=== PATIENT | male | born 1965 | race Caucasian/White ===

== ENCOUNTER 2020-10-05 18:54 | Inpatient (IN) | payer OTHER, SELFPAY ==
[2020-10-05] VITALS (7 sets, daily range): BP systolic 112–131; BP diastolic 70–88; PULSE 107–135; RESP 16–22; TEMP 35.8–37.7; O2SAT 93–97; BMI 31.3
--- NOTE | ~2020-10-05 | US_ITS ---
EXAMINATION:US venous doppler LE BI INDICATION:Prior Covid infection. Pulmonary embolism. TECHNIQUE: Multiple grayscale, color flow and Doppler images of the right and left lower extremity de ep venous systems were obtained and reviewed. COMPARISON:CTA pulmonary dated 10/05/2020 FINDINGS: The common femoral, superficial femoral and popliteal veins demonstrate normal respiratory variation, augmentation and compressibility. Color flow is also seen within the posterior tibial, pe roneal, greater saphenous and profunda veins. IMPRESSION: 1: No lower extremity deep venous thrombosis. Reviewed, dictated and finalized at location B. 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
--- NOTE | ~2020-10-05 | XR_ITS ---
EXAMINATION: XR chest 1V portable DATE: 10/05/2020 19:39 INDICATION: COVID positive presenting with cough and shortness of breath TECHNIQUE: frontal view of the chest was obtained. COMPARISON: None FINDINGS: Linear opacities favoring discoid atelectasis at the lateral left lower lung zone. More indistinct mi ld patchy airspace opacity medial right lower lung zone which could represent additional atelectasis or pneumonia. No pleural effusion or pneumothorax. The cardiomediastinal silhouette is normal. IMPRESSION: 1. Opacities in the bilateral lower lung zones with appearance favoring atelectasis on the left and m ore equivocal for atelectasis versus pneumonia on the right. Reviewed, dictated and finalized at location A. LE HELPER IMPRESSION: 1. Opacities in the bilateral lower lung zones with appearance favoring atelect asis on the left and more equivocal for atelectasis versus pneumonia on the rig ht.
--- NOTE | ~2020-10-05 | CT_ITS ---
EXAMINATION: CTA chest PE abdomen pel DATE: 10/05/2020 20:46 INDICATION: Chest pain, shortness of breath, cough and computed positive. Right flank pain. TECHNIQUE: Computed tomography (CT) pulmonary angiogram of the chest was performed with 100 mL Omnipa que-350 intravenous contrast. Additional 3D reconstructions utilizing coronal maximum intensity proje ction (MIP) were performed. CT of the abdomen and pelvis was performed with intravenous contrast util izing the same contrast bolus following a short delay. Automated exposure control and iterative recon struction technique were employed. The dose-length product was 1247.69 mGy-cm. COMPARISON: None FINDINGS: Chest: Good but suboptimal contrast opacification of the pulmonary arteries. There is moderate streak artifa ct from dense contrast in the superior vena cava and right atrium. Mild scattered respiratory motion artifact. Overall this decreases sensitivity and specificity in some of the smaller segmental and sub segmental pulmonary arteries. Large filling defect in the right lower lobar pulmonary artery extendin g into the basilar segmental and subsegmental pulmonary arteries of the right lower lobe. There appea r to be a few additional smaller pulmonary emboli in several segmental or subsegmental pulmonary rodolfo matt scattered throughout the remainder of the lungs. Overall there is a moderate clot burden. Dense consolidation with some surrounding groundglass opacity in the posterior basilar segment of the right lower lobe most likely representing a pulmonary infarct. Multiple smaller scattered peripheral predo minant groundglass opacities throughout both lungs in a pattern more typical of computed pneumonia. T here are a few bands of linear discoid atelectasis in the bilateral lower lobes and lingula. No pleur al effusion or pneumothorax. Heart size is normal. No leftward bowing of the ventricular septum to gaming ggest right heart strain. Thoracic aorta is normal in caliber with no dissection. Mild bilateral kaitlin r lymphadenopathy which is likely reactive. Abdomen/pelvis: Liver, gallbladder, spleen, pancreas, bilateral adrenal glands and kidneys are normal. There are few scattered colonic diverticula without adjacent inflammatory change to suggest diverticulitis. Small b owel and appendix are normal. Postoperative change of prior umbilical hernia repair. Bladder is dariel l. No free intraperitoneal gas or fluid. No pathologically enlarged abdominal or pelvic lymphadenopat hy. Severe spondylosis at the lumbosacral junction. Mild to moderate spondylosis in the more cephalad lumbar and lower thoracic spine. Moderate bilateral hip osteoarthritis. IMPRESSION: 1. Bilateral pulmonary emboli with overall moderate clot burden, greatest in the right lower lobe whe re there is a pulmonary infarct in the posterior basilar segment. 2. Scattered bilateral peripheral predominant small patchy groundglass opacities more typical of COVI D pneumonia. Both this and the pulmonary emboli and pulmonary infarct were discussed with Dr. Hernández at 9:00 PM. 3. No acute intra-abdominal/pelvic process. Reviewed, dictated and finalized at location A. PULLER IMPRESSION: 1. Bilateral pulmonary emboli with overall moderate clot burden, greatest in th e right lower lobe where there is a pulmonary infarct in the posterior basilar segment. 2. Scattered bilateral peripheral predominant small patchy groundglass opacitie s more typical of COVID pneumonia. Both this and the pulmonary emboli and pulmo nary infarct were discussed with Dr. Hernández at 9:00 PM. 3. No acute intra-abdominal/pelvic process.
--- NOTE | 2020-10-05 19:05 | ECG_ITS ---
Measurements Intervals [place] Rate: 120 P: 64 DC: 147 QRS: 23 QRSD: 78 T: 40 QT: 318 QTc: 449 Interpretive Statements SINUS TACHYCARDIA NONSPECIFIC T-WAVE ABNORMALITY- INFERIOR LEADS ABNORMAL ECG Electronically Signed On 10-06-2020 6:56:41 [employer] by Loi Wilson D.O.
[2020-10-05 19:36] LABS: Basophils Absolute Auto 0.1 K/mm3 (0.0-0.1); Basophils Percent Auto 0.4 % (0.2-1.2); Eosinophils Absolute Auto 0.1 K/mm3 (0-0.3); Eosinophils Percent Auto 0.3 % (0-4.4); Hematocrit 47.6 % (42.0-52.0); Hemoglobin 16.4 g/dL (14.0-18.0); Immature Granulocyte Absolute 0.25 K/mm3 (0.00-0.031); Immature Granulocyte Percent A 1.6 % (0-0.5); Lymphocytes Absolute Auto 1.56 K/mm3 (0.9-3.2); Lymphocytes Percent Auto 9.8 % (18.3-44.2); Mean Corpuscular HGB Conc 34.5 g/dl (32-36); Mean Corpuscular Hemoglobin 28.7 pg (26-34); Mean Corpuscular Volume 83.4 fl (80-100); Mean Platelet Volume 8.9 fl (7.4-10.4); Monocytes Absolute Auto 1.4 K/mm3 (0.1-0.6); Monocytes Percent Auto 8.9 % (2.6-8.5); Neutrophils Absolute Auto 12.6 K/mm3 (1.3-6.7); Platelet Count Result 619 k/mm3 (150-375); Red Blood Count 5.71 M/mm3 (4.6-6.20); White Blood Count 15.9 K/mm3 (4.5-10.0)
[2020-10-05 19:46] LABS: Prothrombin Time 13.8 Seconds (11.1-14.7)
[2020-10-05 20:02] LABS: Lactic Acid Reflex 1.7 mmol/L (0.7-2.1)
[2020-10-05 20:03] LABS: D Dimer 12.01 ug/mL (<0.48)
[2020-10-05 20:05] LABS: Alanine Aminotransferase 113 U/L (4-50); Albumin Level 4.1 g/dL (3.5-5.1); Alkaline Phosphatase 123 U/L (38-126); Anion Gap 10 mmol/L (8-16); Aspartate Amino Transferase 64 U/L (17-59); Bilirubin,Total 1.2 mg/dL (0.2-1.3); Blood Urea Nitrogen 10 mg/dL (9-20); CRP 8.5 mg/dL (<1.0); Calcium 8.8 mg/dL (8.4-10.2); Carbon Dioxide 23 mmol/L (22-30); Chloride 106 mmol/L (98-107); Estimated CRCL calculation 86 ml/min; Estimated Glomerular Filt Rate > 60; Glucose 111 mg/dL (75-110); Potassium 4.2 mmol/L (3.4-5.0); Sodium 139 mmol/L (137-145)
--- NOTE | 2020-10-05 20:06 | PC.NURSE ---
Addendum entered by Baldomero Schmidt RN 10/05/20 20:24: Pt repeatedly yelling I can't breathe, I can't breathe! restless, and pacing around the room. spo2 96% on room air. Pt grabbing right flank area, lower right ribs, as to where the pain is. States hx of kidney stones but states does not feel like his kidney stone pain. Original Note: Attempts at IV x2 per this RN unsuccessful.
[2020-10-05 20:14] LABS: Troponin I < 0.012 ng/mL (0.000-0.034)
--- NOTE | 2020-10-05 20:18 | ED.GENADULT ---
HPI - General Adult General Chief complaint: Upper Respiratory Infection Stated complaint: cOVID +, SOB Time Seen by Provider: 10/05/20 20:08 Source: patient Mode of arrival: ambulatory Limitations: no limitations History of Present Illness HPI narrative: This patient is 55 year old male who presents for evaluation right mid to upper back . He reports he was diagnosed with COVID 2.5 weeks ago. He has had cough, subjective fever, weakness. He states tonight he was laying in bed and he developed pain to his right upper back. He describes his pain has some stepping on his back constantly. He reports this is causing him to have difficulty breathing. He denies chest pain or abdominal pain. He denies nausea, vomiting or diarrhea. He reports weakness and fatigue. Related Data Allergies Allergy/AdvReac Type Severity Reaction Status Date / Time No Known Allergies Allergy Mild Unverified 01/27/15 13:16 Review of Systems Review of Systems: All systems reviewed & are unremarkable except as noted in HPI and below ENT: Reports sore throat Respiratory: Respiratory: Reports cough and Reports dyspnea Gastrointestinal: Gastrointestinal: Denies abdominal pain, Denies diarrhea, Denies nausea and Denies vomiting PMFSH Past Medical History Medical History (Updated 10/05/20 @ 21:18 by Neida Hernández MD) Patient denies medical problems Surgical History Surgical History (Updated 10/05/20 @ 20:19 by Neida Hernández MD) No pertinent past surgical history Social History Social History (Updated 10/05/20 @ 20:19 by Neida Hernández MD) Smoking status: Never smoker Exam Const: General: no acute distress and alert Orientation/consciousness: patient oriented x3 Eyes: EOM: EOMs intact bilaterally Resp: Effort & Inspection: normal respiratory effort and no retractions Auscultation: clear to auscultation bilaterally Cardio: Rate: tachycardic Rhythm: regular rhythm Heart sounds: no murmurs GI: GI Palp: Yes Soft to palpation, No Tenderness to palpation present (GI) and No Guarding due to palpation present (GI) Auscultation: normal bowel sounds : General: Yes CVA tenderness on the right Neuro: General: patient oriented x3 and moves all extremities Psych: Mental Status: mental status grossly normal Affect: normal affect Course Reevaluation(s) Reevaluation #1: I Discussed with patient that he was found to have pulmonary emboli and he will be admitted. Date: 10/05/20 Time: 21:17 Consultations Consultation #1: I discussed case with DR. Drew who accepts patient to [facility] Date: 10/05/20 Time: 21:17 Vital Signs Vital signs: Vital Signs Temperature 96.5 F L 10/05/20 18:58 Pulse Rate 130 H 10/05/20 18:58 Respiratory Rate 16 10/05/20 18:58 Blood Pressure 116/70 10/05/20 18:58 Pulse Oximetry 97 10/05/20 18:58 Temperature 96.5 F L 10/05/20 18:58 Pulse Rate 122 H 10/05/20 20:29 Respiratory Rate 16 10/05/20 20:29 Blood Pressure 126/72 10/05/20 20:29 Pulse Oximetry 93 10/05/20 20:29 Medical Decision Making Vital Signs Vital Signs: Vital Signs Temperature 96.5 F L 10/05/20 18:58 Pulse Rate 130 H 10/05/20 18:58 Respiratory Rate 16 10/05/20 18:58 Blood Pressure 116/70 10/05/20 18:58 Pulse Oximetry 97 10/05/20 18:58 Temperature 96.5 F L 10/05/20 18:58 Pulse Rate 122 H 10/05/20 20:29 Respiratory Rate 16 10/05/20 20:29 Blood Pressure 126/72 10/05/20 20:29 Pulse Oximetry 93 10/05/20 20:29 Lab Data Lab results reviewed: Yes I reviewed the patient's lab results. Result diagrams: 10/05/20 19:15 10/05/20 19:15 Labs: Lab Results 10/05/20 10/05/20 10/05/20 Range/Units 19:15 19:15 19:15 WBC 15.9 H (4.5-10.0) K/mm3 RBC 5.71 (4.6-6.20) M/mm3 Hgb 16.4 (14.0-18.0) g/dL Hct 47.6 (42.0-52.0) % MCV 83.4 (80-100) fl MCH 28.7 (26-34) pg MCHC 34.5 (32-36) g/dl RDW 13.0 (1
[2020-10-05] MEDS: LACTATED RINGERS 1,000 ML 999 ML IV CONT (20:26)
[2020-10-05] MEDS: HYDROmorphone HCL INJ (*CRX) 1 MG/ML SYR IV PUSH (20:27)
[2020-10-05] MEDS: ONDANSETRON INJ 4 MG/2 ML VIAL IV PUSH (20:27)
--- NOTE | 2020-10-05 20:46 | PC.NURSE ---
called to tell Maxime khanna is in room, no answer [id number]
--- NOTE | 2020-10-05 21:00 | PC.NURSE ---
updated on patient status.
[2020-10-05] MEDS: ENOXAPARIN 100 MG/ML SYRINGE SUB-Q (21:19)
[2020-10-05 22:08] LABS: Add Urine Microscopic? YES; Appearance Urine Clear (Clear); Bacteria Urine Trace /hpf; Bilirubin Urine Negative (Negative); Blood Urine Negative (Negative); Color Urine Yellow (Yellow); Glucose Urine UA Negative (Negative); Ketones Urine Trace mg/dL (Negative); Leukocyte Esterase Ur Negative LEU/UL (Negative); Mucus Urine Few /lpf; Nitrate Urine Negative (Negative); Protein Urine 1+ mg/dL (Negative); WBC Urine 0-3 /hpf
[2020-10-05 22:10] LABS: Specific Grav Ur > 1.060 (1.001-1.035)
--- NOTE | 2020-10-05 22:35 | PC.NURSE ---
updated alejandro on patient status and going to room 314
[2020-10-06] VITALS (13 sets, daily range): BP systolic 117–129; BP diastolic 62–83; PULSE 92–121; RESP 16–20; TEMP 36.6–37.1; O2SAT 92–95
--- NOTE | 2020-10-06 00:39 | ADMGEN ---
This patient, Jhon Smith, was admitted to 3 [facility] Surg Room 314-01. Patient/family oriented to hospital policies and general routines including ID bracelet, bed and alarms, visiting hours, pain management, procedures, bathroom and other care routines, personal items, smoking policy, room service/diet, and visiting hours. Information on how to activate the Rapid Response Team has been discussed. Patient/Family are encouraged to report perceived risks to care and to ask questions if they do not understand what they are told or what they should do.
[2020-10-06] MEDS: MORPHINE SULFATE (*CRX) 4 MG/ML INJ IV PUSH ×4 (01:19→07:09)
[2020-10-06 07:37] LABS: Basophils Absolute Auto 0.1 K/mm3 (0.0-0.1); Basophils Percent Auto 0.5 % (0.2-1.2); Eosinophils Percent Auto 0.2 % (0-4.4); Hematocrit 45.2 % (42.0-52.0); Hemoglobin 14.8 g/dL (14.0-18.0); Immature Granulocyte Absolute 0.23 K/mm3 (0.00-0.031); Immature Granulocyte Percent A 1.5 % (0-0.5); Lymphocytes Absolute Auto 2.01 K/mm3 (0.9-3.2); Lymphocytes Percent Auto 12.9 % (18.3-44.2); Mean Corpuscular HGB Conc 32.7 g/dl (32-36); Mean Corpuscular Hemoglobin 27.8 pg (26-34); Mean Corpuscular Volume 84.8 fl (80-100); Mean Platelet Volume 9.1 fl (7.4-10.4); Monocytes Percent Auto 12.8 % (2.6-8.5); Neutrophils Absolute Auto 11.2 K/mm3 (1.3-6.7); Neutrophils Percent Auto 72.1 % (45.5-73.1); Platelet Count Result 555 k/mm3 (150-375); Red Blood Count 5.33 M/mm3 (4.6-6.20); White Blood Count 15.6 K/mm3 (4.5-10.0)
[2020-10-06 07:51] LABS: Alanine Aminotransferase 97 U/L (4-50); Albumin Level 3.8 g/dL (3.5-5.1); Alkaline Phosphatase 109 U/L (38-126); Anion Gap 8 mmol/L (8-16); Aspartate Amino Transferase 50 U/L (17-59); Bilirubin,Total 1.7 mg/dL (0.2-1.3); Blood Urea Nitrogen 10 mg/dL (9-20); Calcium 8.4 mg/dL (8.4-10.2); Carbon Dioxide 25 mmol/L (22-30); Chloride 102 mmol/L (98-107); Estimated CRCL calculation 80 ml/min; Estimated Glomerular Filt Rate > 60; Glucose 114 mg/dL (75-110); Potassium 4.1 mmol/L (3.4-5.0); Sodium 135 mmol/L (137-145)
[2020-10-06] MEDS: ENOXAPARIN 100 MG/ML SYRINGE SUB-Q ×2 (08:25→20:08)
[2020-10-06] MEDS: MORPHINE SULFATE (*CRX) 4 MG/ML INJ 2 MG IV PUSH ×2 (09:09→14:46)
--- NOTE | 2020-10-06 10:39 | PM.IMHP ---
H&P: HPI History of Present Illness Date/Time: 10/06/20 10:00 Chief Complaint: Shortness of breath, right chest pain Narrative: Date of Admission: 10/05/20 Date of Service: 10/06/20 1000 The supervising physician for this history and physical is Dr Alyssa Santos. Mr. Smith is a pleasant 55yo M with previous history of COVID-19 diagnosed 09/19/20 without other known previous medical conditions who presented to the ED for evaluation of worsening shortness of breath and sudden onset of right-sided chest pain. He describes overall significant fatigue since being diagnosed with COVID a few weeks ago. He describes he presented to [facility] 10/04/20 and was not requiring any oxygen at that time, a chest XR was obtained and he was discharged from the ED encouraged to monitor his symptoms. He describes around 7pm yesterday he experienced a sharp, stabbing pressure pain to his right lateral ribcage radiating to his back, worsened with cough and deep breaths. He is having trouble taking deep breaths due to the pain. He denies any anterior or left-sided chest pain. He has a dry nonproductive cough but denies hemoptysis, denies leg swelling or pain. He has been monitoring his oxygen levels at home with pulse ox and noted he hadn't observed any saturations less than 90% at home. Workup thus far has included an elevated D dimer at 12, CTA chest demonstrated AMY pulmonary emboli with moderate clot burden and right lobe infarct. His is mildly hypoxic requiring up to 2L/min nasal cannula. He has been started on therapeutic dosing of Lovenox by the ED provider and he is admitted to the hospitalist service for management of acute respiratory failure with hypoxia in the setting of pulmonary emboli and recent COVID infection. Review of Systems Review of Systems: Narrative: Right lower lateral chest wall pain worse with deep breaths and coughing. Splinting taking short shallow breaths. Denies nausea, vomiting or abdominal pain. Reports fatigue and decreased oral intake with decreased appetite. Denies leg swelling or pain. Denies headaches, dizziness or syncope. Denies heart palpitations or sensation of heart racing. Twelve systems were reviewed with pertinent positives and negatives as per HPI. Except as documented, all other systems were reviewed and are negative. [facility] Past Medical History Medical History Patient denies medical problems Surgical History Surgical History No pertinent past surgical history Social History Social History (Updated 10/06/20 @ 17:00 by Carole Neil PA-C) Social History: Mr. 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 He had been working from home up until a few weeks ago. He reports rare alcohol use less than once per month. Never smoker. Denies other substance use. Reports his old PCP is Dr Joseph in [place] but he had an appointment for tomorrow to establish care with a new PCP closer to his home, unsure of the name but Dr Bustillo is listed in his chart. Full code status. Smoking status: Never smoker Alcohol intake: current Alcohol use details: Rare - less than 1 drink per month Substance use: never Gender identity (if verbalized by the patient): Male Spiritual care concerns: No Meds Home Medications and Allergies Home Medications Medication Instructions Recorded Confirmed Type No Home Medications 10/06/20 10/06/20 History Allergies Allergy/AdvReac Type Severity Reaction Status Date / Time No Known Allergies Allergy Mild Unverified 01/27/15 13:16 Vital Signs Last Vital Signs Temp 97.8 F 10/06/20 14:00 Pulse 92 10/06/20 14:00 Resp 16 10/06/20 14:00 BP 117/62 10/06/20 14:00 Pulse Ox 92 10/06/20 14:00 Exam Narrative: Exam Narrative: General: Moderately ill-appeari
[2020-10-06] MEDS: HYDROcodone/acetaminophen (*CRX) 7.5-325 MG TABLET 1 TAB PO ×2 (11:39→17:48)
[2020-10-06] MEDS: SALINE 0.65% NAS SOLN 44 ML BTL 1 SPRAY NASAL (14:46)
[2020-10-07] VITALS (8 sets, daily range): BP systolic 117–129; BP diastolic 77–91; PULSE 88–103; RESP 18–22; TEMP 36.4–37.1; O2SAT 94–95
[2020-10-07] MEDS: HYDROcodone/acetaminophen (*CRX) 7.5-325 MG TABLET 1 TAB PO ×4 (00:57→22:06)
[2020-10-07 06:25] LABS: Basophils Absolute Auto 0.1 K/mm3 (0.0-0.1); Basophils Percent Auto 0.4 % (0.2-1.2); Eosinophils Absolute Auto 0.1 K/mm3 (0-0.3); Eosinophils Percent Auto 0.5 % (0-4.4); Hematocrit 43.4 % (42.0-52.0); Hemoglobin 14.4 g/dL (14.0-18.0); Immature Granulocyte Absolute 0.16 K/mm3 (0.00-0.031); Immature Granulocyte Percent A 1.1 % (0-0.5); Lymphocytes Absolute Auto 1.94 K/mm3 (0.9-3.2); Lymphocytes Percent Auto 13.2 % (18.3-44.2); Mean Corpuscular HGB Conc 33.2 g/dl (32-36); Mean Corpuscular Hemoglobin 28.5 pg (26-34); Mean Corpuscular Volume 85.9 fl (80-100); Mean Platelet Volume 8.4 fl (7.4-10.4); Monocytes Absolute Auto 1.7 K/mm3 (0.1-0.6); Monocytes Percent Auto 11.4 % (2.6-8.5); Neutrophils Absolute Auto 10.8 K/mm3 (1.3-6.7); Neutrophils Percent Auto 73.4 % (45.5-73.1); Platelet Count Result 505 k/mm3 (150-375); Red Blood Count 5.05 M/mm3 (4.6-6.20); Red Cell Distribution Width 13.1 % (11.5-14.5); White Blood Count 14.7 K/mm3 (4.5-10.0)
[2020-10-07 06:46] LABS: Alanine Aminotransferase 63 U/L (4-50); Albumin Level 3.7 g/dL (3.5-5.1); Alkaline Phosphatase 103 U/L (38-126); Anion Gap 5 mmol/L (8-16); Aspartate Amino Transferase 30 U/L (17-59); Bilirubin,Total 1.7 mg/dL (0.2-1.3); Blood Urea Nitrogen 11 mg/dL (9-20); Calcium 8.6 mg/dL (8.4-10.2); Carbon Dioxide 28 mmol/L (22-30); Chloride 99 mmol/L (98-107); Estimated CRCL calculation 80 ml/min; Estimated Glomerular Filt Rate > 60; Glucose 102 mg/dL (75-110); Potassium 4.2 mmol/L (3.4-5.0); Sodium 132 mmol/L (137-145)
[2020-10-07] MEDS: CHOLECALCIFEROL 1,000 UNITS TABLET 1000 UNITS PO (08:28)
[2020-10-07] MEDS: ASCORBIC ACID 500 MG TABLET PO (08:28)
[2020-10-07] MEDS: ZINC SULFATE 220 MG CAPSULE PO (08:28)
[2020-10-07] MEDS: ENOXAPARIN 100 MG/ML SYRINGE SUB-Q (08:28)
--- NOTE | 2020-10-07 14:20 | PM.IMPN ---
Progress Note: A&P Assessment and Plan (1) Pulmonary embolism and infarction: Code(s): I26.99 - Other pulmonary embolism without acute cor pulmonale Status: Acute Assessment and Plan: CTA chest demonstrates bilateral pulmonary emboli with overall moderate clot burden, greatest in right lower lobe where there is a pulmonary infarct. Received Lovenox this morning, transition to Eliquis tonight. Continue pain control, incentive spirometry. Venous Dopplers of lower extremities demonstrate no evidence of DVT. Sinus tachycardia is noted. No arrhythmia noted on telemetry, DC tele. (2) Pneumonia due to COVID-19 virus: Code(s): U07.1 - COVID-19; J12.82 - Pneumonia due to coronavirus disease 2018 Status: Acute Assessment and Plan: Tested positive for COVID 09/19/20. It is possible his hypoxia was related more to PE than COVID at this point, and he is outside of the recommended time window to receive antiviral therapy or dexamethasone. Suspect this contributed to his increased risk for VTE. Continue supportive care with Robitussin, incentive spirometry, albuterol as needed, saline nasal spray for congestion. (3) Acute respiratory failure: Code(s): J96.00 - Acute respiratory failure, unspecified whether with hypoxia or hypercapnia Status: Resolved Assessment and Plan: As above. Resolved. Has been tolerating room air since yesterday. Continue to monitor with spot checks. Subjective Date/time seen: 10/07/20 1300 Interval history: Mr. Jackson is a 55yo M admitted for pulmonary emboli after recent COVID-19 infection. He continues to have significant right lower chest wall pain with deep breaths and coughing. Continues with short shallow breathing. He has dry cough. Pain is a little improved from yesterday. He is anxious. He denies nausea, vomiting, diarrhea. Overall poor appetite during his COVID recovery but he was surprised he ate well so far today. Review of Systems Review of Systems: All systems reviewed & are unremarkable except as noted in HPI and below Exam Narrative: Exam Narrative: General: Male resting sitting up in bed in no acute distress. HEENT: Normocephalic, EOMI, oral mucosa moist. Neck: Supple. Chest: Coarse bibasilar breath sounds. Taking short shallow breaths. Tolerating room air. Heart: Rate and rhythm regular. Abdomen: Soft, nontender, nondistended, bowel sounds present. Skin: Warm, dry, rashes or lesions. Extremities: Peripheral pulses intact. No edema, erythema, cyanosis or clubbing. No pain to palpation. Neurologic: Alert and oriented. No focal neurological deficits are noted in casual conversation. Speech is clear. Objective Data Vital Signs Vital Signs: Last Vital Signs Temp 98.8 F 10/07/20 22:00 Pulse 101 H 10/07/20 22:00 Resp 18 10/07/20 22:00 BP 129/77 10/07/20 22:00 Pulse Ox 94 10/07/20 22:00 Intake/Output Intake/Output: Intake & Output 10/04/20 10/05/20 10/06/20 10/07/20 23:59 23:59 23:59 23:59 Intake Total 1000 890 370 Balance 1000 890 370 Meds/Results Medications: Active Medications Generic Name Dose Route Start Last Admin Trade Name Freq PRN Reason Stop Dose Admin Acetaminophen 1,000 mg 10/07/20 12:15 Acetaminophen 500 Mg Tablet PO Q6H PRN Pain Rated 5 or Less Hydrocodone Bitart/Acetaminophen 1 tab 10/07/20 12:15 Hydrocodone/Acetaminophen (*Crx) 7.5-325 Mg Tablet PO Q6H PRN Pain Rated 6 or Greater Albuterol 2 puff 10/06/20 12:52 Albuterol Sulfate (*Sp) Aerosol 1 Puff INHALATION Q6HRT PRN Shortness Of Breath Or Wheezing Apixaban 10 mg 10/07/20 21:00 Apixaban 5 Mg Tablet PO 10/14/20 09:01 Q12HR MAZIN Apixaban 5 mg 10/14/20 21:00 Apixaban 5 Mg Tablet PO Q12HR MAZIN Ascorbic Acid 500 mg 10/07
[2020-10-07] MEDS: APIXABAN 5 MG TABLET 10 MG PO (21:14)
[2020-10-08] MEDS: HYDROcodone/acetaminophen (*CRX) 7.5-325 MG TABLET 1 TAB PO ×3 (03:55→23:46)
[2020-10-08 06:00] VITALS: BP 105/54; PULSE 77; RESP 18; TEMP 37.1; O2SAT 90
[2020-10-08 06:30] LABS: Basophils Absolute Auto 0.1 K/mm3 (0.0-0.1); Basophils Percent Auto 0.6 % (0.2-1.2); Eosinophils Absolute Auto 0.1 K/mm3 (0-0.3); Eosinophils Percent Auto 1.5 % (0-4.4); Hematocrit 40.3 % (42.0-52.0); Hemoglobin 13.4 g/dL (14.0-18.0); Immature Granulocyte Absolute 0.15 K/mm3 (0.00-0.031); Immature Granulocyte Percent A 1.6 % (0-0.5); Lymphocytes Absolute Auto 1.16 K/mm3 (0.9-3.2); Lymphocytes Percent Auto 12.1 % (18.3-44.2); Mean Corpuscular HGB Conc 33.3 g/dl (32-36); Mean Corpuscular Hemoglobin 27.7 pg (26-34); Mean Corpuscular Volume 83.3 fl (80-100); Mean Platelet Volume 8.6 fl (7.4-10.4); Monocytes Absolute Auto 1.1 K/mm3 (0.1-0.6); Monocytes Percent Auto 10.9 % (2.6-8.5); Neutrophils Percent Auto 73.3 % (45.5-73.1); Platelet Count Result 510 k/mm3 (150-375); Red Blood Count 4.84 M/mm3 (4.6-6.20); Red Cell Distribution Width 12.8 % (11.5-14.5); White Blood Count 9.6 K/mm3 (4.5-10.0)
[2020-10-08 06:41] LABS: Alanine Aminotransferase 54 U/L (4-50); Albumin Level 3.5 g/dL (3.5-5.1); Alkaline Phosphatase 102 U/L (38-126); Anion Gap 4 mmol/L (8-16); Aspartate Amino Transferase 32 U/L (17-59); Bilirubin,Total 0.6 mg/dL (0.2-1.3); Blood Urea Nitrogen 12 mg/dL (9-20); Calcium 8.3 mg/dL (8.4-10.2); Carbon Dioxide 29 mmol/L (22-30); Chloride 102 mmol/L (98-107); Estimated CRCL calculation 87 ml/min; Estimated Glomerular Filt Rate > 60; Glucose 107 mg/dL (75-110); Magnesium 2.1 mg/dL (1.6-2.3); Potassium 3.9 mmol/L (3.4-5.0); Sodium 135 mmol/L (137-145)
[2020-10-08] MEDS: ASCORBIC ACID 500 MG TABLET PO (09:13)
[2020-10-08] MEDS: ZINC SULFATE 220 MG CAPSULE PO (09:14)
[2020-10-08] MEDS: CHOLECALCIFEROL 1,000 UNITS TABLET 1000 UNITS PO (09:14)
[2020-10-08] MEDS: APIXABAN 5 MG TABLET 10 MG PO ×2 (09:14→20:15)
--- NOTE | 2020-10-08 12:56 | PM.IMPN ---
Progress Note: A&P Assessment and Plan (1) Pulmonary embolism and infarction: Code(s): I26.99 - Other pulmonary embolism without acute cor pulmonale Status: Acute Assessment and Plan: CTA chest demonstrates bilateral pulmonary emboli with overall moderate clot burden, greatest in right lower lobe where there is a pulmonary infarct. Treated initially with Lovenox transitioned to Eliquis. Continue pain control, incentive spirometry. Venous Dopplers of lower extremities demonstrate no evidence of DVT. Anticipate discharge tomorrow and discussed this plan at length with patient. (2) Pneumonia due to COVID-19 virus: Code(s): U07.1 - COVID-19; J12.82 - Pneumonia due to coronavirus disease 2018 Status: Acute Assessment and Plan: Tested positive for COVID 09/19/20. It is possible his hypoxia was related more to PE than COVID at this point, and he is outside of the recommended time window to receive antiviral therapy or dexamethasone. Suspect this contributed to his increased risk for VTE. Continue supportive care with Robitussin, incentive spirometry, albuterol as needed, saline nasal spray for congestion. (3) Acute respiratory failure: Code(s): J96.00 - Acute respiratory failure, unspecified whether with hypoxia or hypercapnia Status: Resolved Assessment and Plan: As above. Resolved. Continue to monitor with spot checks. Subjective Date/time seen: 10/08/20 12:45 Interval history: Mr. Jackson is a 55yo M admitted for pulmonary emboli after recent COVID-19 infection. He continues to have right lower chest wall pain with deep breaths and coughing with difficulty taking in deep breaths. Continues with short shallow breathing. He has dry cough. He is making improvement but very anxious about discharge. He denies nausea, vomiting, diarrhea. Review of Systems Review of Systems: All systems reviewed & are unremarkable except as noted in HPI and below Exam Narrative: Exam Narrative: General: Male resting sitting up in bed in no acute distress. HEENT: Normocephalic, EOMI, oral mucosa moist. Neck: Supple. Chest: Clear to auscultation. Taking short shallow breaths. Tolerating room air. Heart: Rate and rhythm regular. Abdomen: Soft, nontender, nondistended, bowel sounds present. Skin: Warm, dry, rashes or lesions. Extremities: Peripheral pulses intact. No edema, erythema, cyanosis or clubbing. No pain to palpation. Neurologic: Alert and oriented. No focal neurological deficits are noted in casual conversation. Speech is clear. Objective Data Vital Signs Vital Signs: Last Vital Signs Temp 98.3 F 10/08/20 14:00 Pulse 95 10/08/20 14:00 Resp 20 10/08/20 14:00 BP 111/67 10/08/20 14:00 Pulse Ox 95 10/08/20 15:25 Intake/Output Intake/Output: Intake & Output 10/05/20 10/06/20 10/07/20 10/08/20 23:59 23:59 23:59 23:59 Intake Total 5801 112 9013 50 Balance 9454 703 1458 50 Meds/Results Medications: Active Medications Generic Name Dose Route Start Last Admin Trade Name Freq PRN Reason Stop Dose Admin Acetaminophen 1,000 mg 10/07/20 12:15 Acetaminophen 500 Mg Tablet PO Q6H PRN Pain Rated 5 or Less Hydrocodone Bitart/Acetaminophen 1 tab 10/07/20 12:15 10/08/20 03:55 Hydrocodone/Acetaminophen (*Crx) 7.5-325 Mg Tablet PO 1 tab Q6H PRN Administration Pain Rated 6 or Greater Albuterol 2 puff 10/06/20 12:52 Albuterol Sulfate (*Sp) Aerosol 1 Puff INHALATION Q6HRT PRN Shortness Of Breath Or Wheezing Apixaban 10 mg 10/07/20 21:00 10/08/20 09:14 Apixaban 5 Mg Tablet PO 10/14/20 09:01 10 mg Q12HR MAZIN Administration Apixaban 5 mg 10/14/20 21:00 Apixaban 5 Mg Tablet PO Q12HR MAZIN Ascorbic Acid 500 mg 10/07/20 09:00 10/08/20 09:13 Ascorbic Acid 5
[2020-10-08 14:00] VITALS: BP 111/67; PULSE 95; RESP 20; TEMP 36.8; O2SAT 95
[2020-10-08 15:25] VITALS: O2SAT 95
[2020-10-08 20:00] VITALS: PULSE 85; RESP 16; O2SAT 95
[2020-10-08 22:00] VITALS: BP 122/84; PULSE 85; RESP 16; TEMP 36.4; O2SAT 95
[2020-10-09] MEDS: BENZOCAINE 20% DENTAL GEL 9 GM TUBE 1 APPLIC BY MOUTH (00:37)
[2020-10-09 06:00] VITALS: BP 115/74; PULSE 90; RESP 16; TEMP 36.6; O2SAT 94
[2020-10-09] MEDS: HYDROcodone/acetaminophen (*CRX) 7.5-325 MG TABLET 1 TAB PO ×2 (06:17→13:01)
[2020-10-09] MEDS: ASCORBIC ACID 500 MG TABLET PO (08:52)
[2020-10-09] MEDS: APIXABAN 5 MG TABLET 10 MG PO (08:52)
[2020-10-09] MEDS: ZINC SULFATE 220 MG CAPSULE PO (08:52)
[2020-10-09] MEDS: CHOLECALCIFEROL 1,000 UNITS TABLET 1000 UNITS PO (08:52)
[2020-10-09 14:00] VITALS: BP 120/76; PULSE 84; RESP 16; TEMP 36; O2SAT 96
--- NOTE | 2020-10-09 14:58 | PM.DS ---
DS: Admitting Diagnosis Admitting Diagnosis Admitting Diagnosis: Acute respiratory failure; bilateral PE DS: Discharge Diagnosis Discharge Diagnosis (1) Pulmonary embolism and infarction: Code(s): I26.99 - Other pulmonary embolism without acute cor pulmonale Status: Acute Assessment and Plan: Date of Admission 10/05/20 Date of Discharge 10/09/20 Mr. Smith is a 55yo M no significant medical history who presented to the ED for evaluation of worsening shortness of breath right sided chest wall pain. He was diagnosed with COVID on 09/19/2020 after exposure to known COVID positive person's in the workplace. His symptoms included fatigue, malaise, poor appetite, shortness of breath. He had been faring well at home up until a few days prior to arrival at which time he began to have worsening shortness of breath, not able to take in deep breaths. He presented for evaluation at [facility] and reports he received chest x-ray, did not require oxygen and was discharged home. A few days later he presented to [facility] 10/05/2020 with tachycardia, mild hypoxia requiring up to 2 L nasal cannula and pleuritic chest pain. D-dimer was elevated at 12.1 and CTA chest demonstrated bilateral pulmonary emboli, detailed below. He was initially started on therapeutic doses of Lovenox and was transitioned to oral Eliquis. He was treated with supportive care including pain control, incentive spirometry. His supplemental oxygen was weaned and he was tolerating room air with adequate oxygen saturations for > 24 hours prior to discharge. He admits to feeling anxious about being short of breath but overall he is improved. He is establishing soon with a new PCP and is encouraged to make this follow-up appointment within the next week. He is hemodynamically stable for discharge on 10/09/2020 and was educated on return to ED instructions. CTA chest demonstrates bilateral pulmonary emboli with overall moderate clot burden, greatest in right lower lobe where there is a pulmonary infarct. Treated initially with Lovenox transitioned to Eliquis. Eliquis 10mg BID x7 days, followed by 5 mg BID for treatment of PE. Continue pain control, incentive spirometry. Venous Dopplers of lower extremities demonstrate no evidence of DVT. Anticipate discharge tomorrow and discussed this plan at length with patient. (2) Pneumonia due to COVID-19 virus: Code(s): U07.1 - COVID-19; J12.82 - Pneumonia due to coronavirus disease 2018 Status: Acute Assessment and Plan: Tested positive for COVID 09/19/20. It is possible his hypoxia was related more to PE than COVID at this point, and he is outside of the recommended time window to receive antiviral therapy or dexamethasone. Suspect this contributed to his increased risk for VTE. Continue supportive care with Robitussin, incentive spirometry, albuterol as needed, saline nasal spray for congestion. (3) Acute respiratory failure: Code(s): J96.00 - Acute respiratory failure, unspecified whether with hypoxia or hypercapnia Status: Resolved Assessment and Plan: As above. Resolved. Continue to monitor with spot checks. DS: Summary Hospital Course Hospital Course: See above Time Spent with Patient Time attestation: Total time spent providing and/or coordinating discharge services: 45 minutes. Exam Narrative: Exam Narrative: General: Male resting sitting up in bed in no acute distress. HEENT: Normocephalic, EOMI, oral mucosa moist. Neck: Supple. Chest: Clear to auscultation. Taking short shallow breaths. Tolerating room air. Heart: Rate and rhythm regular. Abdomen: Soft, nontender, nondistended, bowel sounds present. Skin: Warm, dry, rashes or lesions. Extremities: Peripheral pulses intact. No edema, eryt
== END 2020-10-09 16:00 | disposition home or self-care (01) | DRG 177 ==
LOC: ANHED 21:18 → ANH3MEDSUR 10-06 07:37
PROVIDERS: Admitting Provider Internal Medicine; Emergency Provider General Practice; PCP Internal Medicine; Visit Provider Physician Assistant
DX: U07.1 COVID-19 (principal); J12.82 Pneumonia due to coronavirus disease 2019; I26.99 Other pulmonary embolism without acute cor pulmonale; J96.01 Acute respiratory failure with hypoxia; R74.01 Elevation of levels of liver transaminase levels; Z23 Encounter for immunization
CPT/HCPCS: 36415; 71045; 71275; 74177; 80053; 81001; 83605; 83735; 84484; 85025; 85380; 85610; 85730; 86140; 87040; 90471; 90653; 93005; 93970; 96374; 96375; 99291; A9270; G0008; J1170; J1650; J2270; J2405; J7120; Q9967

== ENCOUNTER 2020-10-31 15:41 | Emergency (ER) | payer OTHER, SELFPAY ==
[2020-10-31 15:50] VITALS: BP 142/90; PULSE 97; RESP 20; TEMP 36.4; O2SAT 97
--- NOTE | 2020-10-31 16:46 | ED.GENADULT ---
HPI - General Adult General Chief complaint: Unspecified <Willy Ward PA-C - Last Filed: 10/31/20 16:51> Stated complaint: med refill <Willy Ward PA-C - Last Filed: 10/31/20 16:51> Time Seen by Provider: 10/31/20 15:59 <Willy Ward PA-C - Last Filed: 10/31/20 16:51> Source: patient <GIANNA Elder Last Filed: 10/31/20 16:51> Mode of arrival: ambulatory <GIANNA Elder Last Filed: 10/31/20 16:51> Limitations: no limitations <Willy Ward PA-C - Last Filed: 10/31/20 16:51> History of Present Illness HPI narrative: Patient presents with chief complaint of needing a refill of his Eliquis due to a rescheduled establish care appointment due to the snowstorm. Patient states that he took his last dose of Eliquis this morning and does not want to miss any doses. He states that he is establishing care with a new primary and his appointment was moved from the 3rd to the 14th due to weather. Patient was on the Eliquis due to developing PEs while having Covid. Patient denies any fever, chills, shortness of breath, or chest pain. <Willy Ward PA-C - Last Filed: 10/31/20 16:51> Related Data Allergies/adverse reactions: Allergies Allergy/AdvReac Type Severity Reaction Status Date / Time No Known Allergies Allergy Mild Unverified 10/31/20 16:06 <Willy Ward PA-C - Last Filed: 10/31/20 16:51> Review of Systems Review of Systems: Narrative: CONSTITUTIONAL: Denies fever, chills, or sweats. EYES: Denies visual changes, redness, or discharge. ENT: Denies rhinorrhea, congestion, sore throat, or otalgia. CARDIOVASCULAR: Denies chest pain, palpitations, or edema. RESPIRATORY: Denies cough or dyspnea. GASTROINTESTINAL: Denies abdominal pain, nausea, vomiting, or diarrhea. GENITOURINARY: Denies dysuria or hematuria. SKIN: Denies rash or itching. MUSCULOSKELETAL: Denies back pain, joint pain, or myalgia. NEUROLOGIC: Denies headache, numbness, dizziness, or weakness. PSYCHIATRIC: Denies anxiety or depression. <Willy Ward PA-C - Last Filed: 10/31/20 16:51> PMFSH Past Medical History Medical History: Medical History Patient denies medical problems <Willy Ward PA-C - Last Filed: 10/31/20 16:51> Surgical History Surgical History: Surgical History No pertinent past surgical history <Willy Ward PA-C - Last Filed: 10/31/20 16:51> Social History Social History: Social History (Updated 10/06/20 @ 17:00 by Carole Neil PA-C) Social History: Mr. 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 He had been working from home up until a few weeks ago. He reports rare alcohol use less than once per month. Never smoker. Denies other substance use. Reports his old PCP is Dr Joseph in [place] but he had an appointment for tomorrow to establish care with a new PCP closer to his home, unsure of the name but Dr Bustillo is listed in his chart. Full code status. Smoking status: Never smoker Alcohol intake: current Substance use: never Gender identity (if verbalized by the patient): Male Spiritual care concerns: No <Willy Ward PA-C - Last Filed: 10/31/20 16:51> Exam Narrative: Exam Narrative: GENERAL: Well-appearing, well-nourished, and in no acute distress. HEAD: Normocephalic, atraumatic. EYES: PERRLA and EOMI. NECK: Supple. No adenopathy or masses. Range of Motion intact CHEST: Clear to auscultation. No respiratory distress. No wheezes rales or rhonchi HEART: Regular rate and rhythm. No murmur heard. Normal peripheral pulses. EXTREMITIES: Normal range of motion. No edema. SKIN: Warm, dry, no rash. NEURO: No focal deficits. Alert and oriented x3. PSYCH: Normal mood and affect. <Willy Ward PA-C - Last Filed:
== END 2020-10-31 17:00 | disposition home or self-care (01) ==
PROVIDERS: Emergency Provider General Practice
DX: Z76.0 Encounter for issue of repeat prescription (principal); Z86.711 Personal history of pulmonary embolism; Z86.16 Personal history of COVID-19; Z79.01 Long term (current) use of anticoagulants
CPT/HCPCS: 99281

== ENCOUNTER 2025-01-16 16:58 | Emergency (ER) | payer OTHER, SELFPAY ==
--- NOTE | ~2025-01-16 | XR_ITS ---
CHEST RADIOGRAPH, PA AND LATERAL CLINICAL HISTORY: cough/sob/covid+ Hx PE . COMPARISON: 10/05/2020 TECHNIQUE: PA and lateral views of the chest. FINDINGS The cardiomediastinal silhouette is unremarkable. The lungs are clear. IMPRESSION: No focal infiltrate or effusion. Reviewed, dictated and finalized at location A.
--- NOTE | 2025-01-16 16:59 | ED_ITS ---
HPI - URI/Sore Throat General Chief Complaint: Upper Respiratory Infection Stated Complaint: Cold Symptoms Time Seen by Provider: 01/16/25 16:59 Source: patient Mode of arrival: ambulatory Limitations: no limitations History of Present Illness HPI Narrative: Jhon is a 59-year-old male patient presenting to the clinic today with complaints of runny nose, cough, sore throat, and shortness of breath. He reports symptoms started about 2 days ago. Cough is nonproductive. He has felt feverish but has not checked his temperature. States he had COVID in 2020 and developed a PE. Was taking Eliquis but has not taken it for several years. States he feels more short of breath than normal. Does have some chest discomfort but states that is when coughing and not necessarily when he is taking a deep breath. Is able speak in full sentences, SpO2 98% on the room air, heart rate 102, blood pressure is 133/75. Denies smoking or hormone therapy. Recent vehicle travel to [place] over the weekend. Related Data Allergies Allergy/AdvReac Type Severity Reaction Status Date / Time No Known Allergies Allergy Mild Unverified 01/16/25 17:08 Review of Systems Review of Systems: Pertinent positives per HPI. Patient denies any rash, headache, visual changes, dizziness, palpitations, nausea, vomiting, diarrhea, constipation, abdominal pain, or any urinary issues. [facility] Past Medical History Medical History Patient denies medical problems Surgical History Surgical History No pertinent past surgical history Social History Social History (Updated 10/06/20 @ 17:00 by Carole Neil PA-C) Social History: Mr. 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 He had been working from home up until a few weeks ago. He reports rare alcohol use less than once per month. Never smoker. Denies other substance use. Reports his old PCP is Dr Joseph in [place] but he had an appointment for tomorrow to establish care with a new PCP closer to his home, unsure of the name but Dr Bustillo is listed in his chart. Full code status. Smoking status: Never smoker Alcohol intake: current Alcohol use details: Rare - less than 1 drink per month Substance use: never Gender identity (if verbalized by the patient): Male Spiritual care concerns: No Comments At the time of my signature, I reviewed and agree with the nursing past medical, surgical, social, and family history. There is no relevant family history pertinent to the patient complaint. Exam Narrative: General: Well-developed, obese, in no apparent distress Head: Normocephalic, atraumatic Eyes: Pupils equally round and reactive to light bilaterally, EOM intact, sclera and conjunctive clear, no discharge, lids normal Ears: TMs intact and clear, ear canals clear, no drainage, grossly hearing normal. Nose: Nares patent, clear nasal discharge, no inflammation, no sinus tenderness. Mouth: Oral pharynx red without lesions or masses, good dentition, MMM. Neck: Supple, trachea midline, no enlargement of anterior or posterior cervical nodes, no thyroid masses or goiter palpable. Cardio: Regular rate and rhythm, s1 and s2 normal, no murmur appreciated. Resp: Diminished in the bases, no rhonchi, rales, wheezing or rubs Course Course Emergency Course: Portions of this record may have been created with voice recognition software. Level of Care: Express Care Visit Vital Signs Vital signs: Vital Signs Temperature 37.4 C 01/16/25 17:09 Pulse Rate 102 H 01/16/25 17:09 Respiratory Rate 18 01/16/25 17:09 Blood Pressure 133/75 01/16/25 17:09 Pulse Oximetry 98 01/16/25 17:09 Oxygen Delivery Room Air 01/16/25 17:09 Temperature 37.4 C 01/16/25 17:09 Pulse Rate 102 H 01/16/25 17:09 Respiratory Rate 18 01/16/25 17:09 Blood Pressure 133/75 01/16/25 17:09 Pulse Oximetry 98 01/16/25 17:09 Oxygen Delivery Room Air 01/16/25 17:09 Vital signs reviewed MDM - URI/Sore Throat MDM Narrative Medical decision making narrative: At the time of visit patient is resting comfortably on the exam table. Patient appears to be nontoxic. Labs: COVID, influenza, and strep test were performed. COVID testing was positive. Strep and influenza testing was negative. Diagnostics: Chest x-ray negative for any acute cardiopulmonary process Wells criteria for PE: 6.0?points Moderate risk group: 16.2% chance of PE in an ED population. Another study assigned scores > 4 as ?PE Likely? and had a 28% incidence of PE Plan: Patient has COVID. He is reporting increase in shortness of breath, he is slightly tachycardic in the clinic today. Did a recent car trip to [place] this weekend. Temperature is 37.4? C. he is able speak in full sentences and his SpO2 is 98% on room air. Denies any chest pain at rest but states when he is coughing he does have some chest discomfort. History of PE due to COVID in the past. No taking any anticoagulants at this time. Recommend transfer to the ER for CT of his chest to rule out PE. Patient voiced understanding and agrees to transfer. He would like to go to [facility] emergency room. Report was called to Shelly physician's assistant site manager at [facility] and report was given for continuity of care. She accepts patient for transfer. Patient to drive via private car. Differential Diagnosis Differential diagnosis: Likely upper respiratory infection, otitis media, sinusitis, viral infection, bronchitis, influenza, pharyngitis and other (COVID, pneumonia, PE) Lab Data Labs: Lab Results 01/16/25 Range/Units 17:41 POC Influenza A Ag Negative (Negative) POC Influenza B Ag Negative (Negative) POC SARS CoV-2 Ag Positive (Negative) POC Grp A Strep Screen Negative (Negative) Imaging Data Radiologist's impression: ITS Impressions Chest X-Ray 01/16/25 17:44 IMPRESSION: No focal infiltrate or effusion. Discharge Plan Discharge Clinical Impression: COVID-19, History of pulmonary embolus (PE), Shortness of breath Patient Disposition: Acute Care Hospital Condition: Stable Patient Language: Arabic Prescriptions: No Action Eliquis 5 mg Tablet See Rx Instructions .ROUTE .COMPLEX Qty: 47 0RF Rx Instructions: Continue to take 2 tablets (10mg) twice daily through 10/14 morning. Starting 10/14 evening take 1 tablet (5mg) twice daily. Eliquis 5 mg tablet 5 mg PO BID Qty: 30 0RF Follow-up/Referrals: UNKNOWN,DOCTOR [Primary Care Provider] - Time of Disposition: 17:55 Quality NIHSS Nursing Documentation ED NIHSS nursing documentation: reviewed/agree
[2025-01-16 17:09] VITALS: BP 133/75; PULSE 102; RESP 18; TEMP 37.4; O2SAT 98
[2025-01-16 17:43] LABS: EDCOVIDSCREEN Positive (Negative); EDINFLUASCREEN Negative (Negative); EDINFLUBSCREEN Negative (Negative); EDSTREPNEGPOS1 Negative (Negative)
== END 2025-01-16 18:01 | disposition short-term general hospital (02) ==
PROVIDERS: Emergency Provider Nurse Practitioner Family
DX: U07.1 COVID-19 (principal); R06.02 Shortness of breath; Z86.711 Personal history of pulmonary embolism
CPT/HCPCS: 71046; 87081; 87426; 87804; 87880; 99213; G0463

== ENCOUNTER 2025-01-16 18:39 | Emergency (ER) | payer OTHER, SELFPAY ==
--- NOTE | ~2025-01-16 | CT_ITS ---
EXAMINATION: CTA chest PE protocol DATE: 01/16/2025 22:06 CDT INDICATION: Shortness of breath with chest pain and a history of a pulmonary embolus TECHNIQUE: Computed tomographic angiography (CTA) of the chest was performed with 100 mL Omnipaque-35 0 intravenous contrast. The dose-length product was 654.63 mGy-cm. Maximum intensity projection 3D-re constructions of the aorta and other arteries were constructed by the technologist on a separate work station. COMPARISON: 10/05/2020 FINDINGS/OBSERVATIONS: PULMONARY ARTERIES: No filling defect is identified within the main or proximal pulmonary artery. The main pulmonary artery is not enlarged. THORACIC AORTA: No aneurysmal dilatation or dissection is present. The great vessels are intact LUNGS: Patchy groundglass opacification detected bilaterally. The remainder of the lungs are clear. MEDIASTINUM: Mediastinal lymphadenopathy is identified. The largest lymph node is within the subcarinal position measuring 16 mm in short axis dimension. BONES OF THE CHEST: No acute fracture. No significant degenerative disease. No lytic or blastic lesions. HEART: The heart is within the upper limits of normal for size, without pericardial effusion. IMPRESSION: No pulmonary embolus. No thoracic aortic dissection. Patchy groundglass opacification detected bilaterally. Mediastinal lymphadenopathy for which follow-up to resolution is recommended. Reviewed, dictated and finalized at location A.
[2025-01-16 18:43] VITALS: BP 136/80; PULSE 98; RESP 19; TEMP 36.9; O2SAT 97
--- NOTE | 2025-01-16 18:54 | ECG_ITS ---
Test Date: 2025-01-16 18:57:59 Measurements Intervals [place] Rate: 96 P: 57 KS: 167 QRS: 27 QRSD: 86 T: 66 QT: 332 QTc: 421 Interpretive Statements SINUS RHYTHM NONSPECIFIC T-WAVE ABNORMALITY No previous ECG available for comparison Electronically Signed On 01-17-2025 12:40:24 CDT by Krish Bhatti M.D.
--- NOTE | 2025-01-16 18:55 | ED_ITS ---
HPI - URI/Sore Throat General Chief Complaint: Upper Respiratory Infection <GIANNA Prakash Last Filed: 01/16/25 18:57> Stated Complaint: SOB, +Covid, URI s/sx-sent by <GIANNA Prakash Last Filed: 01/16/25 18:57> Time Seen by Provider: 01/16/25 18:50 <GIANNA Prakash Last Filed: 01/16/25 18:57> Focused HPI: Patient is a 59 y/o male who presents to the ED with c/o CP/SOB. Patient reports he began feeling ill 2 days ago with cough, fever, achiness. He began feeling short of breath today with intermittent chest pain. He went to an urgent care today and tested positive for COVID-19. Chest x-ray is clear. Patient has history of COVID-19 in 2021 and states he developed a PE at that time. He states this feels similar. He was then sent here for further evaluation. He is not currently on any anticoagulation. Denies current chest pain. GENERAL: Well-appearing, obese with BMI of 34.3, and in no acute distress. HEAD: Normocephalic, atraumatic. CHEST: Clear to auscultation. ?No respiratory distress. No significant focal lung sounds. HEART: Borderline tachycardic with regular rhythm.? No peripheral edema. NEURO: ?Alert and oriented x3. Patient screened in triage and initial orders placed.? ?Additional care and disposition to be based upon?diagnostic testing and treatment. <Arlene Coelho PA-C - Last Filed: 01/16/25 18:57> Source: patient <GIANNA Prakash Last Filed: 01/16/25 18:57> Mode of arrival: ambulatory <GIANNA Prakash Last Filed: 01/16/25 18:57> Limitations: no limitations <GIANNA Prakash Last Filed: 01/16/25 18:57> History of Present Illness HPI Narrative: Agree with the above with the following additions/corrections: Patient reports that his anticoagulation was discontinued after multiple months of therapy, greater than 4 years ago. Patient states ever since he had COVID he has had persistent respiratory issues. He states that he is to think about his breathing often and frequently coughs. Even laughing causes him to start coughing. He has never seen a typing pool supervisor. He was told he might have asthma and was offered an inhaler but declined this given that no family members had as many never had asthma as a kid. He has been trialing Mucinex and Tylenol at home. His cough remains nonproductive assay has been for years. He states that he did have some chest discomfort at the bases of his ribs which he attributes to his coughing. He was previously in the service in went to [place] so he does not know if he possibly had exposure related to that. The urgent care did not prescribed any medications. Patient has never seen a water pollution specialist. Cardiac risk factors HTN: 0 HLD: Yes DM: 0 Obese: Yes Smoker: 0 Personal history DE/TIA/CVA: 0 Fam Hx DE in first degree relative <65yo: Yes <Loraine Wells MD - Last Filed: 01/17/25 17:19> Related Data Allergies/Adverse Reactions: Allergies Allergy/AdvReac Type Severity Reaction Status Date / Time No Known Allergies Allergy Mild Unverified 01/16/25 17:08 <Arlene Coelho PA-C - Last Filed: 01/16/25 18:57> [facility] Past Medical History Medical History: Medical History Pulmonary embolism associated with COVID-19 2019; anticoagulation discontinued after therapy COVID 2019 <Arlene Coelho PA-C - Last Filed: 01/16/25 18:57> Surgical History Surgical History: Surgical History No pertinent past surgical history <Arlene Coelho PA-C - Last Filed: 01/16/25 18:57> Family History Family History: Family History Father Heart attack, Onset Age: 60 <Arlene Coelho PA-C - Last Filed: 01/16/25 18:57> Social History Social History: Social History Social History: Mr. 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 He had been working from home up until a few weeks ago. He reports rare alcohol use less than once per month. Never smoker. Denies other substance use. Reports his old PCP is Dr Joseph in [place] but he had an appointment for tomorrow to establish care with a new PCP closer to his home, unsure of the name but Dr Bustillo is listed in his chart. Full code status. Smoking status: Never smoker Alcohol intake: current Alcohol use details: Rare - less than 1 drink per month Substance use: never Gender identity (if verbalized by the patient): Male Spiritual care concerns: No <Arlene Coelho PA-C - Last Filed: 01/16/25 18:57> Exam 2 Narrative: GENERAL: Well-appearing, well-nourished, and in no acute distress. HEAD: Normocephalic, atraumatic. EYES: Non injected, non icteric ENT: Nares clear, no rhinorrhea or epistaxis. Gross auditory acuity intact. NECK: Supple. No meningismus. CHEST: Speaking in full sentences. No respiratory distress. Lungs clear to auscultation bilaterally without appreciable wheezes, crackles, or focal consolidation. HEART: Regular rate and rhythm. . ABDOMEN: Soft, nondistended. EXTREMITIES: Normal range of motion. No bilateral lower extremity edema. SKIN: Warm, dry, no rash. NEURO: No focal deficits. Alert and oriented. Answering questions. Following commands. Normal speech without aphasia or dysarthria. PSYCH: Normal mood and affect. <Loraine Wells MD - Last Filed: 01/17/25 17:19> Course Vital Signs Vital signs: Vital Signs Temperature 98.4 F 01/16/25 18:43 Pulse Rate 98 01/16/25 18:43 Respiratory Rate 19 01/16/25 18:43 Blood Pressure 136/80 01/16/25 18:43 Pulse Oximetry 97 01/16/25 18:43 Oxygen Delivery Room Air 05/22/25 18:43 Temperature 99 F 01/16/25 22:05 Pulse Rate 94 01/16/25 23:20 Respiratory Rate 19 01/16/25 23:20 Blood Pressure 123/73 01/16/25 23:20 Pulse Oximetry 97 01/16/25 23:20 Oxygen Delivery Room Air 01/16/25 21:38 <Arlene Coelho PA-C - Last Filed: 01/16/25 18:57> Vital Signs Temperature 98.4 F 01/16/25 18:43 Pulse Rate 98 01/16/25 18:43 Respiratory Rate 19 01/16/25 18:43 Blood Pressure 136/80 01/16/25 18:43 Pulse Oximetry 97 01/16/25 18:43 Oxygen Delivery Room Air 01/16/25 18:43 Temperature 99 F 01/16/25 22:05 Pulse Rate 94 01/16/25 23:20 Respiratory Rate 19 01/16/25 23:20 Blood Pressure 123/73 01/16/25 23:20 Pulse Oximetry 97 01/16/25 23:20 Oxygen Delivery Room Air 01/16/25 21:38 <Loraine Wells MD - Last Filed: 01/17/25 17:19> MDM - URI/Sore Throat MDM Narrative Medical decision making narrative: MSE by ROBBY in triage. <Arlene Coelho PA-C - Last Filed: 01/16/25 18:57> MSE by ROBBY in triage. Patient presents after being diagnosed with COVID and send by recommendation of urgent care given his history embolism last had COVID in 2019. Not Currently on anticoagulation. In the emergency department they are afebrile with vital signs within normal limits. CBC largely unremarkable except for elevated monocytes. HEART SCORE History 2 highly suspicious 1 moderately suspicious 0 slightly suspicious History score [address] depression/elevation not due to LBBB, LVH, or digoxin [address] depression but LBBB, LVH, nonspecific repolarization changes 0 normal ECG score 0 Age 2 >/= 65 1 45-64 0 <45 Age score 1 Risk factors (HTN, hypercholesterolemia, DM, obesity with BMI >30, current smoker or cessation </=3mo), positive fam hx with parent or sibling with CVD before age 65, atherosclerotic disease (prior DE, PCI/CABG, CVA/TIA, or peripheral arterial disease) 2 >/= 3 risk factors or history of atherosclerotic dz 1 - 1-2 risk factors 0 no known risk factors Risk factor score 2 Initial Troponin 2 >3 times normal limit 1 1-3 times normal limit 0 less than or equal to normal limit Troponin score 0 Total HEART Score 3. Repeat troponin normal. CT without PE. Given the ground-glass opacities and his chronic respiratory issues, I do believe patient will benefit from follow-up with a typing pool supervisor in referral/contact information is provided for this. Patient has risks of scarring/longer term damage from either covid or potential exposure while abroad and needs PFTs and further work up in the outpatient setting. Also provided referral information for a water pollution specialist and, if needed, a primary care physician. <Loraine Wells MD - Last Filed: 01/17/25 17:19> Differential Diagnosis Differential diagnosis: Likely upper respiratory infection, viral infection, bronchitis and other (Pulmonary embolism, interstitial lung disease) <Loraine Wells MD - Last Filed: 01/17/25 17:19> Lab Data Attestation: I reviewed the patient's lab results. <Loraine Wells MD - Last Filed: 01/17/25 17:19> Result diagrams: 01/16/25 19:17 01/16/25 19:17 <Arlene Coelho PA-C - Last Filed: 01/16/25 18:57> Labs: Lab Results 01/16/25 01/16/25 Range/Units 19:17 22:04 WBC 7.2 (4.5-10.0) K/mm3 RBC 5.72 (4.6-6.20) M/mm3 Hgb 16.3 (14.0-18.0) g/dL Hct 47.5 (42.0-52.0) % MCV 83.0 (80-100) fl MCH 28.5 (26-34) pg MCHC 34.3 (32-36) g/dl RDW 13.3 (11.5-14.5) % Plt Count 202 D (150-375) k/mm3 MPV 9.2 (7.4-10.4) fl Immature Gran % (Auto) 0.3 (0-0.5) % Neut % (Auto) 60.6 (45.5-73.1) % Lymph % (Auto) 19.1 (18.3-44.2) % [place] % (Auto) 18.1 H (2.6-8.5) % Eos % (Auto) 1.2 (0-4.4) % Baso % (Auto) 0.7 (0.2-1.2) % Lymph # (Auto) 1.38 (0.9-3.2) K/mm3 [place] # (Auto) 1.3 H (0.1-0.6) K/mm3 Eos # (Auto) 0.1 (0-0.3) K/mm3 Baso # (Auto) 0.1 (0.0-0.1) K/mm3 Abs Immat Gran (auto) 0.02 (0.00-0.031) K/mm3 Absolute Neuts (auto) 4.4 (1.3-6.7) K/mm3 Absolute Nucleated RBC 0.000 (0.0-0.012) K/mm3 Nucleated RBC % 0.0 (0.0-0.2) % PT 13.8 (11.1-14.7) Seconds INR 1.0 APTT 32.2 (22.3-36.8) Seconds Sodium 135 L (137-145) mmol/L Potassium 3.7 (3.4-5.0) mmol/L Chloride 101 (98-107) mmol/L Carbon Dioxide 22 (22-30) mmol/L Anion Gap 12 (4-12) mmol/L BUN 13 (9-20) mg/dL Creatinine 1.23 (0.7-1.3) mg/dL Estim Creat Clear Calc 71 ml/min Estimated GFR 60 (59 - ) Glucose 101 (65-110) mg/dL Calcium 8.3 L (8.4-10.2) mg/dL Total Bilirubin 0.7 (0.2-1.3) mg/dL AST 49 (17-59) U/L ALT 48 (6-50) U/L Alkaline Phosphatase 79 (38-126) U/L Troponin I < 0.012 < 0.012 (0.000-0.034) ng/mL NT-Pro-B Natriuret Pep 53 (19.9-100) pg/mL Total Protein 8.0 (6.3-8.2) g/dL Albumin 4.4 (3.5-5.1) g/dL <Arlene Coelho PA-C - Last Filed: 01/16/25 18:57> Lab Results 01/16/25 01/16/25 Range/Units 19:17 22:04 WBC 7.2 (4.5-10.0) K/mm3 RBC 5.72 (4.6-6.20) M/mm3 Hgb 16.3 (14.0-18.0) g/dL Hct 47.5 (42.0-52.0) % MCV 83.0 (80-100) fl MCH 28.5 (26-34) pg MCHC 34.3 (32-36) g/dl RDW 13.3 (11.5-14.5) % Plt Count 202 D (150-375) k/mm3 MPV 9.2 (7.4-10.4) fl Immature Gran % (Auto) 0.3 (0-0.5) % Neut % (Auto) 60.6 (45.5-73.1) % Lymph % (Auto) 19.1 (18.3-44.2) % [place] % (Auto) 18.1 H (2.6-8.5) % Eos % (Auto) 1.2 (0-4.4) % Baso % (Auto) 0.7 (0.2-1.2) % Lymph # (Auto) 1.38 (0.9-3.2) K/mm3 [place] # (Auto) 1.3 H (0.1-0.6) K/mm3 Eos # (Auto) 0.1 (0-0.3) K/mm3 Baso # (Auto) 0.1 (0.0-0.1) K/mm3 Abs Immat Gran (auto) 0.02 (0.00-0.031) K/mm3 Absolute Neuts (auto) 4.4 (1.3-6.7) K/mm3 Absolute Nucleated RBC 0.000 (0.0-0.012) K/mm3 Nucleated RBC % 0.0 (0.0-0.2) % PT 13.8 (11.1-14.7) Seconds INR 1.0 APTT 32.2 (22.3-36.8) Seconds Sodium 135 L (137-145) mmol/L Potassium 3.7 (3.4-5.0) mmol/L Chloride 101 (98-107) mmol/L Carbon Dioxide 22 (22-30) mmol/L Anion Gap 12 (4-12) mmol/L BUN 13 (9-20) mg/dL Creatinine 1.23 (0.7-1.3) mg/dL Estim Creat Clear Calc 71 ml/min Estimated GFR 60 (59 - ) Glucose 101 (65-110) mg/dL Calcium 8.3 L (8.4-10.2) mg/dL Total Bilirubin 0.7 (0.2-1.3) mg/dL AST 49 (17-59) U/L ALT 48 (6-50) U/L Alkaline Phosphatase 79 (38-126) U/L Troponin I < 0.012 < 0.012 (0.000-0.034) ng/mL NT-Pro-B Natriuret Pep 53 (19.9-100) pg/mL Total Protein 8.0 (6.3-8.2) g/dL Albumin 4.4 (3.5-5.1) g/dL <Loraine Wells MD - Last Filed: 01/17/25 17:19> Imaging Data Radiologist's impression: Impressions Chest CTA 01/16/25 22:06 IMPRESSION: No pulmonary embolus. No thoracic aortic dissection. Patchy groundglass opacification detected bilaterally. Mediastinal lymphadenopathy for which follow-up to resolution is recommended. <Loraine Wells MD - Last Filed: 01/17/25 17:19> ECG Data EKG #1: Attestation: I personally reviewed and interpreted this ECG as follows: < Loraine Wells MD - Last Filed: 01/17/25 17:19> ECG completion date: 01/16/25 <Loraine Wells MD - Last Filed: 01/17/25 17:19> ECG completion time: 18:57 <Loraine Wells MD - Last Filed: 01/17/25 17:19> Interpretation: Normal sinus rhythm at a rate of 96 beats per minute. [place] interval 167. QRS 86. QT/QTC 332/386. Good R-wave progression across the precordial leads. No T-wave inversions. <Loraine Wells MD - Last Filed: 01/17/25 17:19> EKG #2: Attestation: I personally reviewed and interpreted this ECG as follows: < Loraine Wells MD - Last Filed: 01/17/25 17:19> ECG completion date: 01/16/25 <Loraine Wells MD - Last Filed: 01/17/25 17:19> ECG completion time: 22:11 <Loraine Wells MD - Last Filed: 01/17/25 17:19> Interpretation: Normal sinus rhythm at a rate of 93 beats per minute. There is premature complex. IL interval 182. QRS 85. QT/QTC 345/396. Good R-wave progression across the precordial leads. No T-wave inversions. <Loraine Wells MD - Last Filed: 01/17/25 17:19> Discharge Plan Discharge Clinical Impression: COVID-19, Abnormal monocyte count, Ground glass opacity present on imaging of lung, Mediastinal lymphadenopathy, Chronic cough <Arlene Coelho PA-C - Last Filed: 01/16/25 18:57> Patient Disposition: Home <GIANNA Prakash Last Filed: 01/16/25 18:57> Condition: Stable <GIANNA Prakash Last Filed: 01/16/25 18:57> Instructions: Antibiotic Form, Chronic Cough (ED), COVID-19 (Coronavirus Disease 2019) (ED), How to Recover from COVID-19 at Home (ED), Long COVID (ED) <GIANNA Prakash Last Filed: 01/16/25 18:57> Additional Instructions: No PE. Given your longstanding respiratory issues, you would likely benefit from undergoing pulmonary function testing and seeing a typing pool supervisor. Referral listed below. Follow-up with primary care physician. If you are in need of a primary care physician 1 is listed below. Your chest pain is I do suspect likely due to the cough and you are low however not no risk. For this reason, it is recommended that you undergo cardiac workup in the outpatient setting. The name of a water pollution specialist is listed below. <Arlene Coelho PA-C - Last Filed: 01/16/25 18:57> Patient Language: [place]an <Arlene Coelho PA-C - Last Filed: 01/16/25 18:57> Prescriptions: New benzonatate 100 mg capsule 100 mg PO BID PRN (Reason: cough) Qty: 20 0RF <Arlene Coelho PA-C - Last Filed: 01/16/25 18:57> Follow-up/Referrals: Eamon Novoa MD [Physician] - (family practice) Krish Bhatti MD [Physician] - (cardiology) UNKNOWN,DOCTOR [Primary Care Provider] - Jack Watkins MD [Physician] - (pulmonology) <Arlene Coelho PA-C - Last Filed: 01/16/25 18:57> Stand Alone Forms: Work/School Release IP <Arlene Coelho PA-C - Last Filed: 01/16/25 18:57> Time of Disposition: 22:44 <Arlene Coelho PA-C - Last Filed: 01/16/25 18:57> 22:44 <Loraine Wells MD - Last Filed: 01/17/25 17:19>
[2025-01-16 19:29] LABS: Basophils Absolute Auto 0.1 K/mm3 (0.0-0.1); Basophils Percent Auto 0.7 % (0.2-1.2); Eosinophils Absolute Auto 0.1 K/mm3 (0-0.3); Eosinophils Percent Auto 1.2 % (0-4.4); Hematocrit 47.5 % (42.0-52.0); Hemoglobin 16.3 g/dL (14.0-18.0); Immature Granulocyte Absolute 0.02 K/mm3 (0.00-0.031); Immature Granulocyte Percent A 0.3 % (0-0.5); Lymphocytes Absolute Auto 1.38 K/mm3 (0.9-3.2); Lymphocytes Percent Auto 19.1 % (18.3-44.2); Mean Corpuscular HGB Conc 34.3 g/dl (32-36); Mean Corpuscular Hemoglobin 28.5 pg (26-34); Mean Platelet Volume 9.2 fl (7.4-10.4); Monocytes Absolute Auto 1.3 K/mm3 (0.1-0.6); Monocytes Percent Auto 18.1 % (2.6-8.5); Neutrophils Absolute Auto 4.4 K/mm3 (1.3-6.7); Neutrophils Percent Auto 60.6 % (45.5-73.1); Platelet Count Result 202 k/mm3 (150-375); Red Blood Count 5.72 M/mm3 (4.6-6.20); Red Cell Distribution Width 13.3 % (11.5-14.5); White Blood Count 7.2 K/mm3 (4.5-10.0)
[2025-01-16 19:55] LABS: Partial Thromboplastin Time 32.2 Seconds (22.3-36.8); Prothrombin Time 13.8 Seconds (11.1-14.7)
[2025-01-16 20:00] LABS: Alanine Aminotransferase 48 U/L (6-50); Albumin Level 4.4 g/dL (3.5-5.1); Alkaline Phosphatase 79 U/L (38-126); Anion Gap 12 mmol/L (4-12); Aspartate Amino Transferase 49 U/L (17-59); Bilirubin,Total 0.7 mg/dL (0.2-1.3); Blood Urea Nitrogen 13 mg/dL (9-20); Calcium 8.3 mg/dL (8.4-10.2); Carbon Dioxide 22 mmol/L (22-30); Chloride 101 mmol/L (98-107); Estimated CRCL calculation 71 ml/min; Estimated Glomerular Filt Rate 60; Glucose 101 mg/dL (65-110); Potassium 3.7 mmol/L (3.4-5.0); Sodium 135 mmol/L (137-145)
[2025-01-16 20:11] LABS: NT Pro B Type Natriuretic Pept 53 pg/mL (19.9-100); Troponin I < 0.012 ng/mL (0.000-0.034)
[2025-01-16 21:38] VITALS: O2SAT 97
[2025-01-16 22:05] VITALS: BP 126/77; PULSE 100; RESP 16; TEMP 37.2; O2SAT 98
--- NOTE | 2025-01-16 22:09 | ECG_ITS ---
Test Date: 2025-01-16 22:11:11 Measurements Intervals [place] Rate: 93 P: 34 OR: 182 QRS: 23 QRSD: 85 T: 43 QT: 345 QTc: 431 Interpretive Statements SINUS RHYTHM WITH OCCASIONAL VENTRICULAR PREMATURE COMPLEXES NONSPECIFIC T-WAVE ABNORMALITY Compared to ECG 01/16/2025 18:57:59 NO SIGNIFICANT CHANGES Electronically Signed On 01-17-2025 12:40:51 CDT by Krish Bhatti M.D.
[2025-01-16 22:30] LABS: Troponin I < 0.012 ng/mL (0.000-0.034)
[2025-01-16 23:20] VITALS: BP 123/73; PULSE 94; RESP 19; O2SAT 97
== END 2025-01-16 23:20 | disposition home or self-care (01) ==
PROVIDERS: Physician Assistant; Emergency Provider Student in an Organized Health Care Education/Training Program
DX: U07.1 COVID-19 (principal); R05.3 Chronic cough; D72.821 Monocytosis (symptomatic); R59.1 Generalized enlarged lymph nodes; R91.8 Other nonspecific abnormal finding of lung field; E78.5 Hyperlipidemia, unspecified; Z86.16 Personal history of COVID-19; Z86.711 Personal history of pulmonary embolism; R71.8 Other abnormality of red blood cells; R94.31 Abnormal electrocardiogram [ECG] [EKG]
CPT/HCPCS: 36415; 71275; 80053; 83880; 84484; 85025; 85610; 85730; 93005; 99284; Q9967